=== PATIENT | male | born 1980 | race Two or more races ===

== ENCOUNTER 2016-09-04 13:03 | Emergency (ER) | payer SELFPAY ==
[~2016-09-04] VITALS: Ht 188 cm; Wt 122.9 kg
[~2016-09-04 13:03] MED LIST: BACK STABILIZE1 EACH MC; CYCLOBENZAPRINE10 MG ORAL; IBUPROFEN600 MG ORAL; KEFLEX500 MG ORAL; NKM; TRAMADOL HCL50 MG ORAL
[2016-09-04 13:19] VITALS: BP 143/86
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
[2016-09-04] MEDS ORDERED: PROMETHAZINE-C118 M1 ORAL (14:13)
[2016-09-04] MEDS ORDERED: IBUPROFEN600 MG ORAL (14:13)
[2016-09-04] MEDS ORDERED: GUAIFENESIN1200 MG PO (14:13)
[2016-09-04 14:25] VITALS: BP 143/86
--- NOTE | 2016-09-05 12:16 | Diagnostic Imaging Report ---
Indication: COUGH Technique: One view of the chest Comparison: none Findings: Lungs and pleural spaces are clear. Heart size is normal. Impression: No acute process
== END 2016-09-04 14:25 | disposition home or self-care (01) ==
LOC: EMR 13:35
DX: J06.9 Acute upper respiratory infection, unspecified (principal); B97.89 Other viral agents as the cause of diseases classified elsewhere; R06.02 Shortness of breath
CPT/HCPCS: 71010; 99284

== ENCOUNTER 2016-10-10 04:29 | Emergency (ER) | payer SELFPAY ==
[~2016-10-10] VITALS: Ht 188 cm; Wt 121.1 kg
[~2016-10-10 04:29] MED LIST changes: +GUAIFENESIN1200 MG PO; +PROMETHAZINE-C118 M1 ORAL
[2016-10-10 05:05] VITALS: BP 113/78
[2016-10-10] MEDS ORDERED: NEXAFED30 MG ORAL (05:10)
[2016-10-10] MEDS ORDERED: IBUPROFEN600 MG ORAL (05:10)
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
[2016-10-10 05:14] VITALS: BP 113/78
[2016-10-10 05:35] VITALS: BP 113/78
== END 2016-10-10 05:35 | disposition home or self-care (01) ==
LOC: EMR 04:57
DX: R51 Headache (principal); J32.9 Chronic sinusitis, unspecified; B97.89 Other viral agents as the cause of diseases classified elsewhere
CPT/HCPCS: 99283

== ENCOUNTER 2019-01-08 06:56 | Emergency (ER) | payer SELFPAY ==
[~2019-01-08] VITALS: Ht 185.4 cm; Wt 129.7 kg
[~2019-01-08 06:56] MED LIST changes: +NEXAFED30 MG ORAL
--- NOTE | 2019-01-08 07:17 | NUR ---
ED Nurse Note: Pt walked into ED from home c/o difficulty urinating for past year. Pt states it has gotten worse over past week. Pt denies pain while urination, burning, discharge. Urine sample sent to lab. Pt states urine has been "stop and go" whenenever has to urinate. No acute distress.
--- NOTE | 2019-01-08 07:21 | NUR ---
ED Nurse Note: DR Paz at bedside.
[2019-01-08 07:22] VITALS: BP 148/92
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
--- NOTE | 2019-01-08 07:35 | NUR ---
ED Nurse Note: US at bedside.
[2019-01-08 07:36] LABS: APPEARANCE,URINE CLEAR; BILIRUBIN, URINE NEGATIVE (NEGATIVE); GLUCOSE, URINE (UA) NEGATIVE (NEGATIVE); KETONES,URINE NEGATIVE (NEGATIVE); LEUKOCYTE ESTERASE ,URINE NEGATIVE (NEGATIVE); NITRITE,URINE NEGATIVE (NEGATIVE); PH,URINE 6 (4.5-8.0); PROTEIN,URINE NEGATIVE (NEGATIVE); UROBILINOGEN,URINE NORMAL MG/DL (0.0-1.0)
[2019-01-08 07:37] LABS: COLOR,URINE YELLOW
[2019-01-08] MEDS ORDERED: FLOMAX0.4 MG ORAL (08:08)
[2019-01-08] MEDS ORDERED: COLACE100 MG ORAL (08:08)
--- NOTE | 2019-01-08 08:27 | NUR ---
ED Nurse Note: per ERMD, no CT and no orthostatic vital signs needed.
[2019-01-08 08:28] VITALS: BP 130/82
--- NOTE | 2019-01-08 08:29 | NUR ---
ED Nurse Note: Pt cleared by health care Provider for discharge. DC instructions electronically sent prescription was given and explained to pt and verbalized understanding of teachings. All medical deviecs such as ID band removed. Pt is AAO x4, ambulatory and left with all personal belongings.
--- NOTE | 2019-01-08 09:28 | Diagnostic Imaging Report ---
Indication: Abdominal pain Technique: Grayscale and duplex Doppler imaging of the abdomen performed. Comparison: None Findings: The liver is echogenic consistent with fatty infiltration. Doppler interrogation of the main portal vein shows patency with hepatopedal, monophasic flow. There is no biliary ductal dilatation identified. Gallbladder is unremarkable. There demonstrated part of the pancreas, aorta and IVC show no definite abnormalities. Both kidneys appear unremarkable. There is no hydronephrosis. IMPRESSION: No acute findings. fatty liver
== END 2019-01-08 08:30 | disposition home or self-care (01) ==
LOC: EMR 07:14
DX: K59.00 Constipation, unspecified (principal)
CPT/HCPCS: 76700; 81003; 99284